=== PATIENT | male | born 1980 | race Caucasian/White ===

== ENCOUNTER 2021-11-08 12:59 | Emergency (ER) | payer BC, MEDICAID ==
[~2021-11-08] VITALS: Ht 165.1 cm; Wt 77.3 kg
[2021-11-08 13:05] VITALS: BP 136/85
== END 2021-11-08 15:01 | disposition home or self-care (01) ==
LOC: M ED 12:59
DX: M71.22 Synovial cyst of popliteal space [Baker], left knee (principal)

== ENCOUNTER → 2021-11-12 | Outpatient (CLI) | payer BC, MEDICAID | LOC: M SOG 08:43 | PROVIDERS: ATTEND Orthopaedic Surgery Adult Reconstructive Orthopaedic Surgery | DX: M71.22 Synovial cyst of popliteal space [Baker], left knee (principal) ==